=== PATIENT | female | born 1925 | race Caucasian/White ===

== ENCOUNTER 2017-07-30 17:19 | Inpatient (IN) | payer MEDICARE, BC ==
[~2017-07-30] VITALS: Ht 157.5 cm; Wt 108.9 kg
[~2017-07-30 17:19] MED LIST: ATOR20TA PO; BETA1TAB18 PO; CALC-854 PO; ENAL20TA75 PO; FURO40TA4 PO; KLOR-CON PO; LORA-512 PO; MULT-1141 PO; NAPR220C15 PO; SITA100T11 PO
[2017-07-30] MEDS ORDERED: normal saline 1000ml 1,000 ML IV ONE (17:21)
[2017-07-30] MEDS ORDERED: aspirin 81mg tab.chew PO ONE (17:25)
[2017-07-30 17:41] LABS: ABG BASE EXCESS 1.6 mmol/L (-2.0-3.0); ABG HCO3 27.4 mmol/L (22.0-26.0); ABG OXYGEN SATURATION 98.7 % (95-98); ABG PH (T) 7.374 (7.350-7.450); ABG PO2 (T) 136.9 mmHg (83-108); ALLEN'S TEST Positive; FCOHb 0.6 % (0.5-1.5); FMetHb 0.4 % (0.3-1.12); FO2Hb 97.7 % (94-100); TOTAL HEMOGLOBIN 11.9 G/dl (12.0-16.0)
[2017-07-30 18:59] LABS: BASOPHILS % (AUTO) 0.3 % (0-1); EOSINOPHILS # (AUTO) 0.3 X10'3 (0-0.9); EOSINOPHILS % (AUTO) 2.6 % (0-6); HEMATOCRIT 33.5 % (35.0-45.0); LYMPHOCYTES # (AUTO) 1.8 X10'3 (1.1-4.8); LYMPHOCYTES % (AUTO) 17.5 % (21-51); MEAN CORPUSCULAR HEMOGLOBIN 26.7 PG (27.0-31.0); MEAN CORPUSCULAR HGB CONC 32.9 % (33.0-36.5); MEAN CORPUSCULAR VOLUME 81.2 FL (78-98); MEAN PLATELET VOLUME 8.7 FL (7.4-10.4); MONOCYTES # (AUTO) 0.9 X10'3 (0-0.9); MONOCYTES % (AUTO) 8.8 % (2-12); NEUTROPHILS # (AUTO) 7.2 X10'3 (1.8-7.7); NEUTROPHILS % (AUTO) 70.8 % (42-75); PLATELET COUNT 177 X10'3 (140-440); RED BLOOD COUNT 4.12 X10'6 (4.20-5.60); RED CELL DISTRIBUTION WIDTH 15.4 % (11.5-14.5); WHITE BLOOD COUNT 10.2 X10'3 (4.5-11.0)
[2017-07-30 19:10] LABS: INR 1.1 INR; PARTIAL THROMBOPLASTIN TIME 26 SECONDS (22-32)
[2017-07-30 19:21] LABS: CREATINE KINASE 49 U/L (26-192); MAGNESIUM 2.2 MG/DL (1.5-2.4)
[2017-07-30] MEDS ORDERED: furosemide 10 MG/1 ML 10ml inj IV ONE (19:35)
[2017-07-30 19:49] LABS: ALANINE AMINOTRANSFERASE 22 U/L (12-78); ALBUMIN 3.7 G/DL (3.4-5.0); ALKALINE PHOSPHATASE 68 IU/L (46-116); ANION GAP 8 (8-16); ASPARTATE AMINO TRANSFERASE 14 U/L (10-37); BILIRUBIN,TOTAL 0.5 MG/DL (0.1-1.0); BLOOD UREA NITROGEN 37 MG/DL (7-18); BUN/CREATININE RATIO 20.6 (6.6-38.0); CALCIUM 8.9 MG/DL (8.5-10.1); CHLORIDE 106 MMOL/L (99-107); GLUCOSE 124 MG/DL (70-104); POTASSIUM 3.8 MMOL/L (3.5-5.1); SODIUM 144 MMOL/L (135-145); TOTAL CARBON DIOXIDE 30.4 MMOL/L (24-32); TOTAL PROTEIN 7.4 G/DL (6.4-8.2); eGFR 26 ML/MIN
[2017-07-30] MEDS ORDERED: temazepam 15mg capsule PO PRN (21:00)
[2017-07-30] MEDS ORDERED: ASPI81TA52 PO (21:24)
[2017-07-30] MEDS ORDERED: mag hydrox/Alum hydrox/simeth 30ml oral suspension PO PRN (21:30)
[2017-07-30] MEDS ORDERED: morphine 2 MG/ML inj. syringe IV PRN ×2 (21:30)
[2017-07-30] MEDS ORDERED: metoclopramide 5 mg/ml inj IV PRN (21:30)
[2017-07-30] MEDS ORDERED: acetaminophen 325mg tablet PO PRN (21:30)
[2017-07-30] MEDS ORDERED: diphenhydrAMINE 50 mg/ml inj IV PRN (21:30)
[2017-07-30] MEDS ORDERED: magnesium hydroxide 30ml (MOM) UD suspension PO PRN (21:30)
[2017-07-30] MEDS ORDERED: HYDROcodone/acetaminophen 10/325mg tab PO PRN (21:30)
[2017-07-30] MEDS ORDERED: bisacodyl 10mg suppository rectal RC PRN (21:30)
[2017-07-30] MEDS ORDERED: HYDROmorphone 1 mg/ml syringe IV PRN ×2 (21:30)
[2017-07-30] MEDS ORDERED: ondansetron/PF 4mg/2ml inj IV PRN (21:30)
[2017-07-30] MEDS ORDERED: diphenhydrAMINE 25mg capsule PO PRN (21:30)
[2017-07-30] MEDS ORDERED: acetaminophen 650mg rectal suppository RC PRN (21:30)
[2017-07-30] MEDS ORDERED: LORA0.5T PO (21:38)
[2017-07-30] MEDS ORDERED: DILT360T11 (21:39)
[2017-07-30] MEDS ORDERED: morphine 5 MG/ML injection IV PRN ×2 (21:42)
[2017-07-31] MEDS: heparin, porcine 5000 units/ml vial SQ SCH ×3 (00:21→18:08)
[2017-07-31] MEDS: LORazepam 0.5 MG tablet PO PRN (04:58)
[2017-07-31] MEDS ORDERED: LORazepam 0.5 MG tablet PO PRN (06:05)
[2017-07-31 07:13] VITALS: BP 115/65
[2017-07-31 07:33] LABS: BASOPHILS % (AUTO) 0.4 % (0-1); EOSINOPHILS # (AUTO) 0.3 X10'3 (0-0.9); EOSINOPHILS % (AUTO) 3.3 % (0-6); HEMATOCRIT 31.2 % (35.0-45.0); HEMOGLOBIN 10.6 g/dl (12.0-16.0); LYMPHOCYTES # (AUTO) 1.4 X10'3 (1.1-4.8); LYMPHOCYTES % (AUTO) 15.7 % (21-51); MEAN CORPUSCULAR HEMOGLOBIN 27.1 PG (27.0-31.0); MEAN CORPUSCULAR HGB CONC 34.2 % (33.0-36.5); MEAN CORPUSCULAR VOLUME 79.2 FL (78-98); MEAN PLATELET VOLUME 8.4 FL (7.4-10.4); MONOCYTES % (AUTO) 10.8 % (2-12); NEUTROPHILS # (AUTO) 6.2 X10'3 (1.8-7.7); NEUTROPHILS % (AUTO) 69.8 % (42-75); PLATELET COUNT 169 X10'3 (140-440); RED BLOOD COUNT 3.93 X10'6 (4.20-5.60); RED CELL DISTRIBUTION WIDTH 15.5 % (11.5-14.5); WHITE BLOOD COUNT 8.9 X10'3 (4.5-11.0)
[2017-07-31] MEDS ORDERED: furosemide 40mg tablet PO SCH (08:00)
[2017-07-31] MEDS ORDERED: non-formulary drug (Mu-Vits-Min Th/Lycopene/Lutein (Centrum Silver Tablet) 1 EACH) PO SCH (08:00)
[2017-07-31] MEDS ORDERED: furosemide 10 MG/1 ML 10ml inj IV SCH ×2 (08:00→20:00)
[2017-07-31] MEDS: furosemide 10 MG/1 ML 10ml inj IV SCH ×2 (08:57→20:08)
[2017-07-31] MEDS: CefTRIAXone/D5W-Rocephin 1gm 50 ML IV SCH (08:57)
[2017-07-31] MEDS: methylPREDNISolone sod succ 125mg/2ml vial IV SCH ×2 (08:58→20:07)
[2017-07-31] MEDS: beta-carotene(A) w/C & E + minerals tab PO SCH (08:59)
[2017-07-31] MEDS: docusate sod 100mg capsule PO SCH ×2 (08:59→20:07)
[2017-07-31] MEDS: lisinopril 2.5mg tablet PO SCH (08:59)
[2017-07-31] MEDS: loratadine 10mg tablet PO SCH (08:59)
[2017-07-31] MEDS: aspirin 81mg tablet.DR PO SCH (09:00)
[2017-07-31] MEDS: azithromycin 250mg tablet PO SCH (09:00)
[2017-07-31] MEDS: potassium chloride 8mEq ER tablet PO SCH ×3 (09:00→23:00)
[2017-07-31] MEDS: calcium carbonate/vitamin D3 tablet PO SCH ×3 (09:01→18:08)
[2017-07-31] MEDS: pantoprazole 40mg Tablet.DR PO SCH (09:03)
[2017-07-31 10:03] LABS: ALANINE AMINOTRANSFERASE 14 U/L (12-78); ALBUMIN 3.6 G/DL (3.4-5.0); ALBUMIN/GLOBULIN RATIO 0.9 (1.1-1.5); ALKALINE PHOSPHATASE 68 IU/L (46-116); ANION GAP 7 (8-16); ASPARTATE AMINO TRANSFERASE 14 U/L (10-37); BILIRUBIN,TOTAL 0.5 MG/DL (0.1-1.0); BLOOD UREA NITROGEN 34 MG/DL (7-18); CALCIUM 8.9 MG/DL (8.5-10.1); CHLORIDE 106 MMOL/L (99-107); GLUCOSE 106 MG/DL (70-104); POTASSIUM 3.8 MMOL/L (3.5-5.1); SODIUM 145 MMOL/L (135-145); TOTAL CARBON DIOXIDE 31.8 MMOL/L (24-32); TOTAL PROTEIN 7.5 G/DL (6.4-8.2); eGFR 28 ML/MIN
[2017-07-31 11:00] VITALS: BP 139/99
[2017-07-31] MEDS ORDERED: glucagon, human recombinant 1mg kit SUBCUT PRN (13:00)
[2017-07-31] MEDS ORDERED: dextrose ORAL solution 15 GM/59 ML bottle PO PRN ×2 (13:00)
[2017-07-31] MEDS ORDERED: dextrose 50%-water 50ml dispensing syringe IV PRN ×2 (13:00)
[2017-07-31] MEDS: lactobacillus rhamnosus 10,000 MMU CELLS/CAPSULE PO SCH (18:08)
[2017-07-31] MEDS: HYDROcodone/acetaminophen 5mg/325mg tablet PO PRN (20:07)
[2017-07-31] MEDS: atorvastatin 20mg tablet PO SCH (23:00)
[2017-08-01] MEDS ORDERED: HYDROmorphone 2mg/ml vial IV PRN ×2 (00:20)
[2017-08-01] MEDS: heparin, porcine 5000 units/ml vial SQ SCH ×4 (02:33→22:43)
[2017-08-01] MEDS: LORazepam 0.5 MG tablet PO PRN (05:16)
[2017-08-01 05:47] LABS: BASOPHILS % (AUTO) 0.1 % (0-1); EOSINOPHILS % (AUTO) 0.6 % (0-6); HEMATOCRIT 33.1 % (35.0-45.0); HEMOGLOBIN 10.8 g/dl (12.0-16.0); LYMPHOCYTES # (AUTO) 0.8 X10'3 (1.1-4.8); LYMPHOCYTES % (AUTO) 21.7 % (21-51); MEAN CORPUSCULAR HEMOGLOBIN 26.6 PG (27.0-31.0); MEAN CORPUSCULAR HGB CONC 32.6 % (33.0-36.5); MEAN CORPUSCULAR VOLUME 81.5 FL (78-98); MEAN PLATELET VOLUME 9.8 FL (7.4-10.4); MONOCYTES # (AUTO) 0.1 X10'3 (0-0.9); MONOCYTES % (AUTO) 1.3 % (2-12); NEUTROPHILS % (AUTO) 76.3 % (42-75); PLATELET COUNT 168 X10'3 (140-440); RED BLOOD COUNT 4.06 X10'6 (4.20-5.60); RED CELL DISTRIBUTION WIDTH 15.7 % (11.5-14.5); WHITE BLOOD COUNT 3.9 X10'3 (4.5-11.0)
[2017-08-01 06:27] LABS: ALANINE AMINOTRANSFERASE 22 U/L (12-78); ALBUMIN 3.5 G/DL (3.4-5.0); ALBUMIN/GLOBULIN RATIO 0.9 (1.1-1.5); ALKALINE PHOSPHATASE 66 IU/L (46-116); ASPARTATE AMINO TRANSFERASE 18 U/L (10-37); BILIRUBIN,TOTAL 0.4 MG/DL (0.1-1.0); BLOOD UREA NITROGEN 42 MG/DL (7-18); BUN/CREATININE RATIO 22.1 (6.6-38.0); CALCIUM 8.7 MG/DL (8.5-10.1); GLUCOSE 175 MG/DL (70-104); TOTAL CARBON DIOXIDE 28.9 MMOL/L (24-32); TOTAL PROTEIN 7.4 G/DL (6.4-8.2); eGFR 25 ML/MIN
[2017-08-01 06:51] LABS: ANION GAP 10 (8-16); CHLORIDE 102 MMOL/L (99-107); SODIUM 141 MMOL/L (135-145)
[2017-08-01 06:55] LABS: POTASSIUM 4.4 MMOL/L (3.5-5.1)
[2017-08-01 07:57] VITALS: BP 128/90
[2017-08-01] MEDS: loratadine 10mg tablet PO SCH (08:16)
[2017-08-01] MEDS: azithromycin 250mg tablet PO SCH (08:16)
[2017-08-01] MEDS: methylPREDNISolone sod succ 125mg/2ml vial IV SCH ×2 (08:16→20:36)
[2017-08-01] MEDS: calcium carbonate/vitamin D3 tablet PO SCH ×3 (08:16→16:56)
[2017-08-01] MEDS: beta-carotene(A) w/C & E + minerals tab PO SCH (08:16)
[2017-08-01] MEDS: CefTRIAXone/D5W-Rocephin 1gm 50 ML IV SCH (08:16)
[2017-08-01] MEDS: potassium chloride 8mEq ER tablet PO SCH ×3 (08:17→20:35)
[2017-08-01] MEDS: docusate sod 100mg capsule PO SCH ×2 (08:17→20:36)
[2017-08-01] MEDS: lactobacillus rhamnosus 10,000 MMU CELLS/CAPSULE PO SCH ×2 (08:17→16:56)
[2017-08-01] MEDS: aspirin 81mg tablet.DR PO SCH (08:17)
[2017-08-01] MEDS: pantoprazole 40mg Tablet.DR PO SCH (08:17)
[2017-08-01] MEDS: lisinopril 2.5mg tablet PO SCH (08:17)
[2017-08-01] MEDS: furosemide 10 MG/1 ML 10ml inj IV SCH ×2 (08:18→20:36)
[2017-08-01 11:00] VITALS: BP 123/79
[2017-08-01] MEDS ORDERED: LORazepam 0.5 MG tablet PO PRN (12:20)
[2017-08-01 20:00] VITALS: BP 144/93
[2017-08-01] MEDS: atorvastatin 20mg tablet PO SCH (20:36)
[2017-08-01] MEDS: HYDROcodone/acetaminophen 5mg/325mg tablet PO PRN (20:50)
[2017-08-02] VITALS: BP 132/69
[2017-08-02 06:08] LABS: BASOPHILS % (AUTO) 0 % (0-1); EOSINOPHILS % (AUTO) 0 % (0-6); HEMATOCRIT 35.1 % (35.0-45.0); HEMOGLOBIN 11.7 g/dl (12.0-16.0); LYMPHOCYTES # (AUTO) 0.9 X10'3 (1.1-4.8); LYMPHOCYTES % (AUTO) 10.4 % (21-51); MEAN CORPUSCULAR HEMOGLOBIN 26.7 PG (27.0-31.0); MEAN CORPUSCULAR HGB CONC 33.3 % (33.0-36.5); MEAN CORPUSCULAR VOLUME 80.2 FL (78-98); MEAN PLATELET VOLUME 10.1 FL (7.4-10.4); MONOCYTES # (AUTO) 0.3 X10'3 (0-0.9); NEUTROPHILS # (AUTO) 7.1 X10'3 (1.8-7.7); NEUTROPHILS % (AUTO) 85.6 % (42-75); PLATELET COUNT 195 X10'3 (140-440); RED BLOOD COUNT 4.38 X10'6 (4.20-5.60); RED CELL DISTRIBUTION WIDTH 16.1 % (11.5-14.5); WHITE BLOOD COUNT 8.3 X10'3 (4.5-11.0)
[2017-08-02 06:53] LABS: ALANINE AMINOTRANSFERASE 34 U/L (12-78); ALBUMIN 3.9 G/DL (3.4-5.0); ALKALINE PHOSPHATASE 62 IU/L (46-116); ANION GAP 14 (8-16); ASPARTATE AMINO TRANSFERASE 34 U/L (10-37); BILIRUBIN,TOTAL 0.3 MG/DL (0.1-1.0); BLOOD UREA NITROGEN 60 MG/DL (7-18); CALCIUM 8.6 MG/DL (8.5-10.1); CHLORIDE 99 MMOL/L (99-107); GLUCOSE 168 MG/DL (70-104); POTASSIUM 4.4 MMOL/L (3.5-5.1); SODIUM 139 MMOL/L (135-145); TOTAL CARBON DIOXIDE 26.4 MMOL/L (24-32); TOTAL PROTEIN 7.9 G/DL (6.4-8.2); eGFR 19 ML/MIN
[2017-08-02 07:30] VITALS: BP 120/71
[2017-08-02] MEDS: aspirin 81mg tablet.DR PO SCH (08:50)
[2017-08-02] MEDS: beta-carotene(A) w/C & E + minerals tab PO SCH (08:50)
[2017-08-02] MEDS: calcium carbonate/vitamin D3 tablet PO SCH ×3 (08:50→17:17)
[2017-08-02] MEDS: docusate sod 100mg capsule PO SCH ×2 (08:51→21:13)
[2017-08-02] MEDS: azithromycin 250mg tablet PO SCH (08:51)
[2017-08-02] MEDS: loratadine 10mg tablet PO SCH (08:51)
[2017-08-02] MEDS: potassium chloride 8mEq ER tablet PO SCH ×3 (08:51→21:14)
[2017-08-02] MEDS: lactobacillus rhamnosus 10,000 MMU CELLS/CAPSULE PO SCH ×2 (08:52→17:17)
[2017-08-02] MEDS: lisinopril 2.5mg tablet PO SCH (08:52)
[2017-08-02] MEDS: pantoprazole 40mg Tablet.DR PO SCH (08:53)
[2017-08-02] MEDS: methylPREDNISolone sod succ 125mg/2ml vial IV SCH ×2 (09:02→21:13)
[2017-08-02] MEDS: CefTRIAXone/D5W-Rocephin 1gm 50 ML IV SCH (09:02)
[2017-08-02] MEDS: furosemide 10 MG/1 ML 10ml inj IV SCH (09:02)
[2017-08-02] MEDS: heparin, porcine 5000 units/ml vial SQ SCH ×3 (09:03→23:35)
[2017-08-02 09:38] VITALS: BP 156/105
[2017-08-02 11:35] VITALS: BP 137/92
[2017-08-02] MEDS: diltiazem CD 180mg cap (once-daily) PO SCH (14:31)
[2017-08-02 20:00] VITALS: BP 133/81
[2017-08-02] MEDS: atorvastatin 20mg tablet PO SCH (21:14)
[2017-08-02] MEDS: furosemide 20 MG/2 ML vial IV SCH (21:14)
[2017-08-03 00:35] VITALS: BP 139/82
[2017-08-03 06:01] LABS: BASOPHILS % (AUTO) 0 % (0-1); EOSINOPHILS % (AUTO) 0 % (0-6); HEMATOCRIT 32.3 % (35.0-45.0); HEMOGLOBIN 10.6 g/dl (12.0-16.0); LYMPHOCYTES # (AUTO) 0.6 X10'3 (1.1-4.8); LYMPHOCYTES % (AUTO) 7.9 % (21-51); MEAN CORPUSCULAR HEMOGLOBIN 26.3 PG (27.0-31.0); MEAN CORPUSCULAR HGB CONC 32.8 % (33.0-36.5); MEAN CORPUSCULAR VOLUME 80.2 FL (78-98); MEAN PLATELET VOLUME 9.6 FL (7.4-10.4); MONOCYTES # (AUTO) 0.2 X10'3 (0-0.9); MONOCYTES % (AUTO) 2.7 % (2-12); NEUTROPHILS # (AUTO) 6.2 X10'3 (1.8-7.7); NEUTROPHILS % (AUTO) 89.4 % (42-75); PLATELET COUNT 160 X10'3 (140-440); RED BLOOD COUNT 4.02 X10'6 (4.20-5.60); RED CELL DISTRIBUTION WIDTH 15.3 % (11.5-14.5)
[2017-08-03 06:25] LABS: ALANINE AMINOTRANSFERASE 29 U/L (12-78); ALBUMIN 3.2 G/DL (3.4-5.0); ALKALINE PHOSPHATASE 46 IU/L (46-116); ANION GAP 10 (8-16); ASPARTATE AMINO TRANSFERASE 23 U/L (10-37); BILIRUBIN,TOTAL 0.3 MG/DL (0.1-1.0); BLOOD UREA NITROGEN 76 MG/DL (7-18); BUN/CREATININE RATIO 31.7 (6.6-38.0); CALCIUM 7.8 MG/DL (8.5-10.1); CHLORIDE 103 MMOL/L (99-107); GLUCOSE 173 MG/DL (70-104); POTASSIUM 4.2 MMOL/L (3.5-5.1); SODIUM 141 MMOL/L (135-145); TOTAL CARBON DIOXIDE 28.3 MMOL/L (24-32); TOTAL PROTEIN 6.5 G/DL (6.4-8.2); eGFR 19 ML/MIN
[2017-08-03 08:00] VITALS: BP 121/61
[2017-08-03] MEDS: CefTRIAXone/D5W-Rocephin 1gm 50 ML IV SCH (08:00)
[2017-08-03] MEDS: furosemide 20 MG/2 ML vial IV SCH (10:44)
[2017-08-03] MEDS: heparin, porcine 5000 units/ml vial SQ SCH (10:46)
[2017-08-03] MEDS: methylPREDNISolone sod succ 125mg/2ml vial IV SCH (10:47)
[2017-08-03] MEDS: lactobacillus rhamnosus 10,000 MMU CELLS/CAPSULE PO SCH (10:48)
[2017-08-03] MEDS: aspirin 81mg tablet.DR PO SCH (10:49)
[2017-08-03] MEDS: pantoprazole 40mg Tablet.DR PO SCH (10:49)
[2017-08-03] MEDS: potassium chloride 8mEq ER tablet PO SCH ×2 (10:50→12:42)
[2017-08-03] MEDS: beta-carotene(A) w/C & E + minerals tab PO SCH (10:50)
[2017-08-03] MEDS: lisinopril 2.5mg tablet PO SCH (10:50)
[2017-08-03] MEDS: azithromycin 250mg tablet PO SCH (10:51)
[2017-08-03] MEDS: calcium carbonate/vitamin D3 tablet PO SCH ×2 (10:51→12:42)
[2017-08-03] MEDS: docusate sod 100mg capsule PO SCH (10:52)
[2017-08-03] MEDS: diltiazem CD 180mg cap (once-daily) PO SCH (10:52)
[2017-08-03] MEDS: loratadine 10mg tablet PO SCH (10:52)
[2017-08-03 11:00] VITALS: BP 132/55
[2017-08-03] MEDS ORDERED: cefTRIAXone 1g/NS 100ml IVPB 100 ML IV SCH (11:00)
[2017-08-03] MEDS ORDERED: PRED10TA23 PO (11:22)
[2017-08-03] MEDS ORDERED: DOXY100C2 PO (11:22)
== END 2017-08-03 17:15 | disposition home health service (06) | DRG 291 ==
LOC: ER 17:20 → ED HOLD 21:29 → EDBEDREQ 07-31 00:58 → SUR 3N 07-31 02:03
PROVIDERS: ADMIT Family Medicine; ATTEND Family Medicine
PROC: BW241ZZ Computerized Tomography (CT Scan) of Chest and Abdomen using Low Osmolar Contrast (ICD-10-PCS; principal; 2017-07-31)
DX: I13.0 Hypertensive heart and chronic kidney disease with heart failure and stage 1 through stage 4 chronic kidney disease, or unspecified chronic kidney disease (principal); I50.33 Acute on chronic diastolic (congestive) heart failure; J18.9 Pneumonia, unspecified organism; N17.9 Acute kidney failure, unspecified; E11.22 Type 2 diabetes mellitus with diabetic chronic kidney disease; E11.65 Type 2 diabetes mellitus with hyperglycemia; J44.0 Chronic obstructive pulmonary disease with (acute) lower respiratory infection; I48.91 Unspecified atrial fibrillation; J44.1 Chronic obstructive pulmonary disease with (acute) exacerbation; E07.9 Disorder of thyroid, unspecified; F41.9 Anxiety disorder, unspecified; G47.30 Sleep apnea, unspecified; D64.9 Anemia, unspecified; N18.9 Chronic kidney disease, unspecified; J39.8 Other specified diseases of upper respiratory tract; R09.02 Hypoxemia; Z99.81 Dependence on supplemental oxygen; Z95.3 Presence of xenogenic heart valve; Z88.5 Allergy status to narcotic agent; Z79.899 Other long term (current) drug therapy; Z85.3 Personal history of malignant neoplasm of breast; Z85.42 Personal history of malignant neoplasm of other parts of uterus
CPT/HCPCS: 36415; 36600; 70490; 71045; 71250; 76536; 80053; 82550; 82803; 82948; 83735; 83874; 83880; 84443; 84484; 85018; 85025; 85610; 85730; 87070; 93005; 93306; 94760; 96374; 99285; J0696; J1170; J1200; J1644; J1940; J2930; J7030